=== PATIENT | male | born 1955 | race Caucasian/White ===

== ENCOUNTER → 2017-03-04 | Outpatient (CLI) | payer BC ==
[~2017-03-04] MED LIST: ALL300 PO; ASCA500 PO; ASPEC325 PO; B-COTAB18 PO; CLB200 PO; GINK40TA3 PO; GLUC100014 PO; HYDR-5688 PO; MULT-506 PO; OMEG10002 PO; OXYC-57 PO; OXYSR10 PO; POTA10CA28 PO; POTA99TA PO; VITA10004 PO; VITA400C49 PO; VITAMIN B PO; vitamin b
[2017-03-04 16:55] LABS: BASO % 0.5 %; BASO ABS # 0.03 K/uL (0-0.2); COMPLETE YES; EOS % 0.5 %; HEMATOCRIT 44.1 % (42-52); LYMPH % 26.2 %; LYMPH ABS # 1.48 K/uL (1.2-3.4); MEAN CELL VOLUME 93.8 fL (80-100); MEAN CORPUSCULAR HEMOGLOBIN 31.1 pg (25-34); MEAN CORPUSCULAR HGB CONC 33.1 g/dl (32-36); MEAN PLATELET VOLUME 9.2 fL (7.4-10.4); MONO % 8.7 %; NEUT % 64.1 %; PLATELET COUNT 305 K/uL (130-400); WHITE BLOOD COUNT 5.64 K/uL (4.8-10.8)
[2017-03-04 17:27] LABS: BLOOD UREA NITROGEN 17 mg/dl (7-18); BUN/CREATININE RATIO 20.7 (10-20); CALCIUM 8.8 mg/dl (8.5-10.1); CARBON DIOXIDE 28 mmol/L (21-32); CHLORIDE 108 mmol/L (98-107); CREATININE 0.83 mg/dl (0.60-1.40); GLUCOSE 82 mg/dl (70-99); POTASSIUM 4.6 mmol/L (3.5-5.1); SODIUM 140 mmol/L (136-145)
[2017-03-04 18:00] LABS: URINE APPEARANCE CLEAR (CLEAR); URINE BILIRUBIN NEG (NEG); URINE COLOR DK YELLOW; URINE NITRITE NEG (NEG); URINE PH 5.5 (4.5-7.5); URINE SPECIFIC GRAVITY 1.025 (1.000-1.030); UROBILINOGEN NEG (NEG)
[2017-03-04 18:02] LABS: MANUAL MICROSCOPIC REQUIRED? NO; REVIEW REQ? NO
== END | disposition home or self-care (01) ==
LOC: C.LAB 15:44
DX: M51.16 Intervertebral disc disorders with radiculopathy, lumbar region (principal)

== ENCOUNTER 2017-03-08 10:43 | Day surgery (SDC) | payer OTHER, BC ==
[2017-03-05 14:15] VITALS: BMI 26.0
--- NOTE | 2017-03-05 16:25 | DIAGNOSTIC IMAGING REPORT ---
CHEST 2 VIEWS ROUTINE CLINICAL HISTORY: 61 years-old Male presenting with PREOP. TECHNIQUE: PA and lateral views of the chest were obtained. COMPARISON: 08/15/2014. FINDINGS: Cardiomediastinal silhouette normal. Lungs and pleural spaces clear. Osseous structures normal. Upper abdomen normal. IMPRESSION: 1. No acute cardiopulmonary disease. Electronically signed by: Saman Mora M.D. 03/05/2017 4:23 PM Dictated Date/Time: 03/05/2017 4:23 PM
[~2017-03-08] VITALS: Ht 172.7 cm; Wt 77.5 kg
[~2017-03-08 10:43] MED LIST changes: -ASPEC325 PO; +CEFAZOLIN 1000MG/55 ML D5W IV SCH; -CLB200 PO; -GINK40TA3 PO; -HYDR-5688 PO; +LACTATED RINGER'S 1000ML 1,000 ML IV SCH; -OXYC-57 PO; -OXYSR10 PO; -POTA10CA28 PO; -VITA10004 PO; -VITAMIN B PO; -vitamin b
[2017-03-08 11:30] VITALS: BP 112/65; PULSE 60; TEMP 36.7; O2SAT 98; Ht 172.7 cm; Wt 77.5 kg
[2017-03-08] MEDS ORDERED: FENTANYL CITRATE INJ 50 MCG/1 ML 2 ML VIAL IV PRN (12:45)
[2017-03-08] MEDS ORDERED: EpHEDrine SULFATE INJ 50 MG/ML AMP IV PRN (12:45)
[2017-03-08] MEDS ORDERED: ONDANSETRON INJ 2 MG/ML 2 ML VIAL IV PRN (12:45)
[2017-03-08] MEDS ORDERED: ATROPINE SULFATE 0.1 MG/ML 5ML SYR IV PRN (12:45)
--- NOTE | 2017-03-08 13:37 | History & Physical Bridge Note ---
H&P Re-Evaluation Bridge Note: I have examined the patient, reviewed the History & Physical and in the interval since the performance of the History & Physical I have noted the following changes of clinical significance: No changes noted
--- NOTE | 2017-03-08 13:38 | History and Physical ---
History & Physical Date Mar 08, 2017. Chief Complaint Back and left leg pain History of Present Illness The patient is a 61 year old male with complaints of back and left leg pain Additional History Hepatic Disease: No Endocrine Disorder: No Kidney Disease: No Hypertension: No Heart Disease: No Bleeding Tendencies: No Infectious Diseases: No Allergies Coded Allergies: Cat Dander (Verified Allergy, Unknown, ., 03/08/17) NO KNOWN DRUG ALLERGIES (Verified Allergy, Unknown, , 03/08/17) Home Medications Scheduled Allopurinol (Allopurinol), 300 MG PO QAM Ascorbic Acid (Vitamin C), 500 MG PO BID B-Complex Vitamins (Vitamin B Complex), 1 TAB PO BID Glucosamine Sulfate (Glucosamine), 1 TAB PO BID Multivitamin (Multivitamin), 1 TAB PO QAM [place]-3 Fatty Acids (Fish Oil), 2 TAB PO BID Potassium (Potassium), 1 TAB PO BID Vitamin E (Vitamin E), 2 TABS PO BID Physical Examination Skin: warm/dry, no rash Eyes: normal inspection, EOMI, sclerae normal ENT: normal ENT inspection, pharynx normal Head: normocephalic, atraumatic Neck: supple, no adenopathy, trachea midline Respiratory/Chest: lungs clear, normal breath sounds, no respiratory distress Cardiovascular: regular rate, rhythm, no edema, no murmur Abdomen / GI: normal bowel sounds, non tender Back: normal inspection Extremities: normal inspection, normal range of motion Neurologic/Psych: no motor/sensory deficits, alert, normal reflexes, oriented x 3 Diagnosis Herniated nucleus pulposus L4 5 on the left Plan of Treatment Laminectomy L4 5 left
[2017-03-08] MEDS ORDERED: MIDAZOLAM HCL 1 MG/ML 2ML VIAL ONE (13:58)
[2017-03-08] MEDS ORDERED: FENTANYL CITRATE INJ 50 MCG/1 ML 2 ML VIAL ONE ×2 (13:58→14:24)
[2017-03-08] MEDS ORDERED: BUPIVACAINE/EPINEPHRINE 0.5% MPF 1:200,000 10 ML VIAL ONE (14:00)
[2017-03-08] MEDS ORDERED: BACITRACIN 50000 UNIT VIAL ONE (14:00)
[2017-03-08] MEDS ORDERED: HYDROmorphone INJ 2 MG/ML SYR/VIAL ONE (14:24)
[2017-03-08] MEDS ORDERED: LIDOCAINE HCL 2% 2 ML VIAL (20MG/ML) ONE (14:38)
[2017-03-08] MEDS ORDERED: ONDANSETRON INJ 2 MG/ML 2 ML VIAL ONE ×2 (14:38→15:10)
[2017-03-08] MEDS ORDERED: PROPOFOL IV EMULSION 10 MG/ML 20 ML VIAL IV ONE (14:38)
[2017-03-08] MEDS ORDERED: ROCURONIUM BROMIDE 10 MG/ML 5 ML VIAL IV ONE (14:38)
[2017-03-08] MEDS ORDERED: DEXAMETHASONE SOD INJ 4 MG/ML VIAL ONE (14:38)
[2017-03-08] MEDS ORDERED: PHENYLEPHRINE HCL INJ 10 MG/ML VIAL ONE (14:45)
[2017-03-08] MEDS ORDERED: OXYC-57 PO (15:12)
--- NOTE | 2017-03-08 15:13 | Discharge Instructions ---
Discharge Instructions Date of Service Mar 08, 2017. Admission Reason for Admission: Lumbar Spinal Stenosis Discharge Discharge Diagnosis / Problem: herniated nucleus pulposus L4 5 Discharge Goals Goal(s): Improve function Activity Recommendations Activity Limitations: per Instructions/Follow-up section . Instructions / Follow-Up Instructions / Follow-Up ACTIVITY RECOMMENDATIONS: SELF CARE INSTRUCTIONS AFTER A LAMINECTOMY 1. No prolonged sitting (less than 30 minutes for the first 3 weeks after surgery). 2. No bending, lifting more than 5 pounds, or twisting (roll like a log when turning in bed). 3. You may shower 3 days after surgery if no drainage from wound. Thoroughly dry wound. Do not soak in the tub. 4. Please walk as much as you can for exercise. Gradually increase the distance that you walk as your endurance increases. 5. You may drive in 7-10 days if you are comfortable and no longer requiring pain medications. SPECIAL CARE INSTRUCTIONS: VERY IMPORTANT TO READ AND REVIEW A. Your surgical incision has been closed with a cosmetic suture under the skin that will dissolve in about 6 weeks. In 14 days, you can use a pair of clean scissors and cut the suture that is left outside of the skin at the ends of your incision. B. Complications are uncommon, but please contact us if you have any signs or symptoms of: 1. wound infection (fever higher than 102.5 degrees F, redness, separation of wound, drainage, or increasing pain from the incision) 2. blood clots in legs (pain, swelling, redness and warmth in legs) 3. urinary tract infection (fever higher than 102.5 degrees, burning upon urination or increased frequency of urination) 4. nerve problems (inability to walk on your toes or heels, numbness, loss of bowel or bladder control) 5. any other symptoms that concern you. C. Please call the office at if you have any concerns or questions about your operation or recovery. MANAGING PAIN AFTER SPINAL SURGERY 1. Narcotic medication is intended for short-term use and will be provided for surgical pain. Surgical pain usually lasts for a period of 4-6 weeks. Narcotic medication includes Percocet, Vicodin, Darvocet, Tylenol #3 or Lortab. 2. Longer-term pain is more appropriately treated with non-narcotic medication such as Tylenol ES. 3. Muscle spasm is not appropriately treated with narcotics. Muscle relaxers such as Soma, Flexeril or Skelaxin can be used along with Tylenol ES. 4. Remember that we all live with some "aches and pains". This is not unusual or uncommon after an injury or as we get older. 5. We will provide appropriate medication within the normal guidelines of their prescribed use. We will also be very cautious and aware of potential abuse and extended duration of patients' medication needs. 6. Please allow 2-3 days to process refills. Prescriptions will not be mailed but must be picked up at the office. FOLLOW UP VISIT: Keep your scheduled follow-up appointment. Any questions, please call the office at . Current Hospital Diet Patient's current hospital diet: Discharge Diet Recommended Diet: Regular Diet Procedures Procedures Performed: Left L4-L5 Laminectomy Pending Studies Studies pending at discharge: no Medical Emergencies . Who to Call and When: Medical Emergencies: If at any time you feel your situation is an emergency, please call 911 immediately. . Non-Emergent Contact Non-Emergency issues call your: Primary Care Provider . "Provider Documentation" section prepared by Fadi Suero. . VTE Core Measure Inpt VTE Proph given/why not?: Aries Fall, SCD's
[2017-03-08] MEDS ORDERED: KETOROLAC TROMETHAMINE 30 MG/ML VIAL IV. PRN (15:15)
[2017-03-08] MEDS ORDERED: FLOSEAL HEMOSTATIC MATRIX 5ML TOP ONE (15:15)
[2017-03-08] MEDS ORDERED: HYDROmorphone INJ 1 MG/ML SYR IV PRN (15:15)
[2017-03-08] MEDS ORDERED: ACETAMINOPHEN 325 MG TAB PO PRN (15:15)
[2017-03-08] MEDS ORDERED: OXYCODONE/ACETAMINOPHEN 5-325 TAB PO PRN (15:15)
--- NOTE | 2017-03-08 15:20 | [facility] Operative Report ---
Operative Report Operative Date Mar 08, 2017. Pre-Operative Diagnosis Herniated nucleus pulposus L4-L5 on the left Post-Operative Diagnosis Herniated nucleus pulposus L4-L5 on the left Procedure(s) Performed Revision laminectomy L4 [address] Fadi Suero [employer] Intern Surgeon(s) Bridgett Lezama PA-C Estimated Blood Loss 30mL Findings Herniated nucleus pulposus Specimens No pathology specimens per surgeon Description of Procedure Patient was met with preoperative early case discussed all questions are dressed. After informed consent patient was taken back to the suite and after undergoing intubation placed in a prone position injectables frame. All bony promises well-padded eyes inspected to ensure there is no external pressure placed upon. This point the lumbar spine was prepped and draped nostril fashion. With the assistance of fluoroscopy to verify the 45 disc space. Midline incision was created overlying this region. Sharp dissection with the assistance of Bovie cautery performed onto an exposing the remaining lamina at L4 5. Clearly had previous surgery at this region. Peripheral root revised the decompression identified the L5 pedicle and several loose fragments of free disc material identified and removed. After this complete area was explored several times ensure all loose fractures were addressed in copious irrigated. Incision was then closed with 1 Vicryl fascia tubercle subcutaneous C 4 Monocryl for Yadira closure Steri-Strips sterile dressing placed patient we can take PACU stable condition. Please note Bridgett Belle was present throughout the entire procedure involved in patient positioning complex portions of the procedure and final skin closure. I attest to the content of the Intraoperative Record and any orders documented therein. Any exceptions are noted below.
--- NOTE | 2017-03-08 15:37 | DIAGNOSTIC IMAGING REPORT ---
Radiology SPINE ONE VIEW, ANY LEVEL CLINICAL HISTORY: 61 years-old Male presenting with L4-L5 LAMI. TECHNIQUE: 2 fluoroscopic spot image(s) obtained as part of an intraoperative procedure. COMPARISON: None. FINDINGS/IMPRESSION: Surgical and [place] projects over the lower lumbar region at the level of L4-5. Anatomic alignment maintained. Relative height loss of L5. Please see surgical report for further details. Fluoroscopy dosage (mGy): Not available. Fluoroscopy time: 5 seconds. Number of fluoroscopic spot images: 2. Electronically signed by: Saman Mora M.D. 03/08/2017 3:35 PM Dictated Date/Time: 03/08/2017 3:35 PM
--- NOTE | 2017-03-08 16:39 | Anesthesiology Progress Note ---
Anesthesia Post Op Note Date & Time Mar 08, 2017 at 16:39 Vital Signs Pain Intensity: 0 Vital Signs Past 12 Hours Date Time Temp Pulse Resp B/P (MAP) Pulse Ox O2 Delivery O2 Flow Rate FiO2 03/08/17 16:10 36.2 57 16 109/66 95 Room Air 03/08/17 16:00 36.2 57 16 109/76 95 Room Air 03/08/17 15:50 57 16 108/60 95 Room Air 03/08/17 15:40 57 16 109/73 100 Oxymask 10 03/08/17 15:34 36.2 63 16 115/56 100 Oxymask 10 03/08/17 11:30 36.7 60 18 112/65 (81) 98 Room Air Notes Mental Status: alert / awake / arousable, participated in evaluation Pt Amnestic to Procedure: Yes Nausea / Vomiting: adequately controlled Pain: adequately controlled Airway Patency, RR, SpO2: stable & adequate BP & HR: stable & adequate Hydration State: stable & adequate Anesthetic Complications: no major complications apparent
[2017-03-08 16:45] VITALS: BP 134/68; PULSE 65; TEMP 36.5; O2SAT 96
== END 2017-03-08 17:00 | disposition home or self-care (01) ==
LOC: C.ACU 10:43
PROVIDERS: ATTEND Orthopaedic Surgery Orthopaedic Surgery of the Spine
DX: M51.26 Other intervertebral disc displacement, lumbar region (principal); K21.9 Gastro-esophageal reflux disease without esophagitis; M10.9 Gout, unspecified